=== PATIENT | female | born 1975 | race Caucasian/White ===

== ENCOUNTER → 2025-03-10 10:23 | Outpatient (CLI) | payer OTHER, SELFPAY ==
--- NOTE | 2025-03-10 10:30 | DI.RAD.S_ITS ---
PROCEDURE: XR LUMBAR SPINE 2-3V INDICATIONS: HIP/BACK PAIN TECHNIQUE: 3 views of the lumbar spine were acquired. COMPARISON: None. FINDINGS: Bones: 5 [id number] vertebrae are present. There is normal bony alignment. No vertebral body compression fractures. No suspicious bony lesions. There is multilevel facet arthropathy, worse at L4-5 and L5-S1. Mild multilevel disc height loss with degenerative endplate changes and spurring is present. Partially visualized right hip arthroplasty. Soft tissues: Overlying bowel gas pattern is normal. No suspicious soft tissue calcifications. Large stool burden. Atherosclerotic vascular calcifications. Right upper quadrant surgical clips. 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 Large stool burden, correlate for constipation. Dictated by: Raghu Rivera M.D. on 03/10/2025 at 15:28 Approved by: Raghu Rivera M.D. on 03/10/2025 at 15:29
--- NOTE | 2025-03-10 10:30 | DI.RAD.S_ITS ---
PROCEDURE: ORTHO-XR HIP BILAT W/PEL 3-4 INDICATIONS: HIP/BACK PAIN TECHNIQUE: 4 views of the hip were acquired. COMPARISON: None. FINDINGS: Bones: No fractures or dislocations. Right hip arthroplasty appears intact without surrounding fracture or lucency. Mild left hip joint degeneration. No suspicious bony lesions. The visualized pelvic ring appears intact. Soft tissues: No suspicious soft tissue calcifications or masses. IMPRESSION: Right hip arthroplasty without evidence of complication. Mild left hip joint degeneration. Dictated by: Raghu Rivera M.D. on 03/10/2025 at 15:30 Approved by: Raghu Rivera M.D. on 03/10/2025 at 15:30
== END ==
LOC: RAD 10:28
PROVIDERS: PCP Family Medicine; Referring Provider Family Medicine; Visit Provider Family Medicine
DX: M47.817 Spondylosis without myelopathy or radiculopathy, lumbosacral region (principal); M47.816 Spondylosis without myelopathy or radiculopathy, lumbar region; M16.12 Unilateral primary osteoarthritis, left hip; M54.9 Dorsalgia, unspecified; Z96.641 Presence of right artificial hip joint
CPT/HCPCS: 72100; 73522